=== PATIENT | male | born 1960 | race Two or more races ===

== ENCOUNTER 2021-02-16 16:54 | Emergency (ER) | payer MEDICAID, OTHER ==
[~2021-02-16] VITALS: Ht 165.1 cm; Wt 79.0 kg
[2021-02-16] MEDS ORDERED: MORPHINE SULFATE 4 MG/ML CPJ (NOT FOR IM USE) IV STA (17:10)
[2021-02-16] MEDS ORDERED: ACETAMINOPHEN 325MG TABLET PO STA (17:10)
[2021-02-16 18:27] LABS: BASOPHILS % 0.3 % (0.0-2.0); EOSINOPHILS % 1.7 % (0.0-5.0); HEMATOCRIT. 44.3 % (42.0-52.0); HEMOGLOBIN. 15.1 g/dL (14.0-18.0); LYMPHOCYTES % 26.9 % (20.0-50.0); MEAN CORPUSCULAR HEMOGLOBIN 32.7 pg (28.0-32.0); MEAN PLATELET VOLUME 8.3 fl (7.4-10.4); MONOCYTES % 7.9 % (2.0-8.0); NEUTROPHILS % 63.2 % (40.0-76.0); PLATELET 232 x1000/uL (130-400); RED BLOOD CELL COUNT 4.62 mill/uL (4.7-6.1); RED CELL DISTRIBUTION WIDTH 12.6 % (11.6-14.6)
[2021-02-16 18:36] LABS: CHLORIDE 108 mEq/L (98-107)
[2021-02-16 18:42] LABS: ETHANOL BLOOD < 10 mg/dL
[2021-02-16 22:50] VITALS: BP 139/81
[2021-02-16 22:55] LABS: CLARITY URINE CLEAR (CLEAR); COLOR URINE YELLOW (YELLOW); KETONES URINE NEGATIVE (NEGATIVE); LEUKOCYTE ESTERASE URINE NEGATIVE (NEGATIVE); NITRITE URINE NEGATIVE (NEGATIVE); OCCULT BLOOD URINE NEGATIVE (NEGATIVE); PH URINE 7.5 (4.5-8.0); PROTEIN URINE NEGATIVE (NEGATIVE); SPECIFIC GRAVITY URINE 1.062 (1.005-1.030); UROBILINOGEN URINE 0.2 E.U./dL (0.2-1.0)
[2021-02-16 23:11] LABS: *AMPHETAMINES SCREEN URINE NEGATIVE (NEGATIVE)
[2021-02-16 23:12] LABS: *BARBITURATES SCREEN URINE NEGATIVE (NEGATIVE); *BENZODIAZEPINES SCREEN URINE NEGATIVE (NEGATIVE); *COCAINE SCREEN URINE NEGATIVE (NEGATIVE); METHADONE URINE SCREEN NEGATIVE (NEGATIVE); OPIATES URINE SCREEN NEGATIVE (NEGATIVE); PHENCYCLIDINE URINE SCREEN NEGATIVE (NEGATIVE)
[2021-02-16 23:13] LABS: CANNABINOID URINE SCREEN NEGATIVE (NEGATIVE)
[2021-02-16] MEDS ORDERED: IOHEXOL-350 100 ML BOTTLE ONE (23:16)
== END 2021-02-16 23:38 | disposition left against medical advice (07) ==
LOC: ER 16:54 → ENRESERV 21:45 → CANRESERV 21:46 → ENRESERV 21:46 → CANBEDREQ 23:30 → ER 23:38
DX: H54.7 Unspecified visual loss (principal); M48.8X9 Other specified spondylopathies, site unspecified; Z87.828 Personal history of other (healed) physical injury and trauma
CPT/HCPCS: 36415; 70450; 70498; 71045; 80053; 80305; 80320; 81003; 83605; 83690; 83880; 84484; 85025; 86850; 86900; 86901; 93005; 99285; Q9967; J2270; G0480